=== PATIENT | female | born 1950 | race Caucasian/White ===

== ENCOUNTER 2017-09-08 18:08 | Observation (INO) | payer MEDICARE, BC ==
[2017-09-08] MEDS: SODIUM CHLORIDE 0.9% FLUSH 10 ML SOL IV PRN ×2 (18:12→19:09)
[2017-09-08] MEDS ORDERED: ASPIRIN 81 MG CHEWABLE CTB ONE (18:14)
[2017-09-08] MEDS ORDERED: ASPIRIN 81 MG CHEWABLE CTB PO ONE (18:15)
[2017-09-08] MEDS ORDERED: SODIUM CHLORIDE 0.9% 500 ML 500 ML IV ONE (18:20)
[2017-09-08] MEDS ORDERED: ADENOSINE 3 MG/ML SOL IV PRN (18:23)
[2017-09-08] MEDS ORDERED: ADENOSINE 3 MG/ML SOL IV ONE (18:23)
[2017-09-08 18:51] LABS: BASOPHILS % (AUTO) 1 % (0-3); EOSINOPHILS % (AUTO) 2 % (0-9); HEMATOCRIT 44 % (35-47); MEAN CORPUSCULAR HGB CONC 33.2 gm/dl (32.0-36.0); MEAN CORPUSCULAR VOLUME 92 fL (81-99); MONOCYTES % (AUTO) 13.8 % (0-12); NEUTROPHILS % (AUTO) 47.9 % (37-80)
[2017-09-08] MEDS ORDERED: DILTIAZEM 5 MG/ML SOL IV ONE ×2 (18:58→19:07)
[2017-09-08 19:07] LABS: ALBUMIN 3.9 gm/dl (3.4-5.0); ALT 29 IU/L (14-63); CALCIUM 9.8 mg/dl (8.5-10.1); GLOM FILT RATE 46 mL/min (>60); POTASSIUM 3.9 mMol/L (3.5-5.1); SODIUM 139 mMol/L (136-145); THYROID STIMULATING HORMONE 2.833 uIU/ml (0.358-3.740)
[2017-09-08] MEDS ORDERED: HYDROCORTISONE TOP PRN (19:48)
[2017-09-08] MEDS ORDERED: [UNRECOGNIZED DRUG - OTHER] TOP PRN (19:48)
[2017-09-08] MEDS ORDERED: FLUOCINONIDE APPL TOP PRN (19:48)
[2017-09-08] MEDS: ENOXAPARIN 40 MG SOL SC SCH (20:50)
[2017-09-08 23:10] VITALS: O2SAT 97
[2017-09-09] MEDS: SODIUM CHLORIDE 0.9% FLUSH 10 ML SOL IV PRN (07:16)
[2017-09-09] MEDS ORDERED: SODIUM CHLORIDE 0.9% FLUSH 10 ML SOL IV SCH (08:00)
[2017-09-09] MEDS: ENOXAPARIN 40 MG SOL SC SCH (08:19)
[2017-09-09] MEDS ORDERED: ASPIRIN EC 81 MG PO SCH (09:00)
[2017-09-09] MEDS ORDERED: Non-Formulary Medication MISC (Levothyroxine Sodium 88 Mcg 88 MCG) PO SCH (09:00)
[2017-09-09] MEDS ORDERED: DULOXETINE HCL 90 MG PO SCH (09:00)
[2017-09-09] MEDS ORDERED: DILTIAZEM ER 120 MG C24 PO SCH (09:00)
[2017-09-09 09:02] VITALS: BP 127/85; PULSE 75; RESP 12; TEMP 97.8
[2017-09-09] MEDS ORDERED: PNEUMOC 13-VAL CONJ-DIP CRM/PF 0.5 ML SYRINGE IM ONE (09:27)
== END 2017-09-09 10:50 | disposition home or self-care (01) | DRG 310 ==
LOC: ED 18:08 → ACUTE CARE 19:36
PROVIDERS: ADMIT Family Medicine; ATTEND Family Medicine
DX: I47.1 Supraventricular tachycardia (principal)
CPT/HCPCS: 36415; 71010; 80053; 84443; 84484; 85025; 90670; 93005; 93012; 99285; J0153; J1650; G0008

== ENCOUNTER 2018-09-24 12:40 | Observation (INO) | payer MEDICARE, BC ==
[2018-09-24] MEDS ORDERED: SODIUM CHLORIDE 0.9% 1000ML 1,000 ML IV ONE (13:19)
[2018-09-24] MEDS ORDERED: ONDANSETRON HCL 4 MG/2 ML SOL IV PRN (13:53)
[2018-09-24] MEDS: PANTOPRAZOLE SODIUM 40 MG/10 ML PDS IV SCH (15:49)
[2018-09-24] MEDS ORDERED: VITAMIN B INJ SCH (17:00)
[2018-09-24] MEDS ORDERED: ENOXAPARIN 40 MG SOL SC SCH (17:00)
[2018-09-24] MEDS: SODIUM CHLORIDE 0.9% FLUSH 10 ML SOL IV SCH (17:41)
[2018-09-24] MEDS ORDERED: DEXTROSE/SALINE 0.45% 1,000 ML IV ONE ×2 (18:00)
[2018-09-25] MEDS: SODIUM CHLORIDE 0.9% FLUSH 10 ML SOL IV SCH ×2 (00:24→08:15)
[2018-09-25] MEDS ORDERED: DEXTROSE/SALINE 0.45% 1,000 ML IV ONE (04:00)
[2018-09-25] MEDS ORDERED: LEVOTHYROXINE SODIUM 88 MCG TAB PO SCH (07:00)
[2018-09-25 07:41] LABS: BASOPHILS % (AUTO) 1 % (0-3); EOSINOPHILS % (AUTO) 1 % (0-9); HEMATOCRIT 38 % (35-47); HEMOGLOBIN 12.8 gm/dl (12.0-15.5); LYMPHOCYTES % (AUTO) 28.1 % (10-50); MEAN CORPUSCULAR HEMOGLOBIN 31.1 pg (27.0-32.0); MEAN CORPUSCULAR HGB CONC 33.4 gm/dl (32.0-36.0); MEAN CORPUSCULAR VOLUME 93 fL (81-99); MONOCYTES % (AUTO) 29.4 % (0-12); NEUTROPHILS % (AUTO) 39.9 % (37-80)
[2018-09-25 07:44] LABS: ALBUMIN 3.2 gm/dl (3.4-5.0); BILIRUBIN,TOTAL 0.6 mg/dl (0.2-1.0); CALCIUM 8.6 mg/dl (8.5-10.1); CARBON DIOXIDE 26.8 mEq/L (21-32); CREATININE 1.71 mg/dl (0.60-1.00); POTASSIUM 3.7 mMol/L (3.5-5.1); TOTAL PROTEIN 6.6 gm/dl (6.4-8.2)
[2018-09-25] MEDS: PANTOPRAZOLE SODIUM 40 MG/10 ML PDS IV SCH (08:15)
[2018-09-25] MEDS ORDERED: DILTIAZEM ER 120 MG C24 PO SCH (09:00)
[2018-09-25 09:03] VITALS: BP 146/89; PULSE 73; RESP 14; TEMP 97.8; O2SAT 96
== END 2018-09-25 10:50 | disposition home or self-care (01) | DRG 392 ==
LOC: ACUTE CARE 12:40
PROVIDERS: ADMIT Emergency Medicine; ATTEND Emergency Medicine
DX: R19.7 Diarrhea, unspecified (principal); N17.9 Acute kidney failure, unspecified; K29.00 Acute gastritis without bleeding; I10 Essential (primary) hypertension; R73.03 Prediabetes
CPT/HCPCS: 36415; 80053; 82962; 85025; J1650; A9270-GY